=== PATIENT | male | born 1980 ===

== ENCOUNTER 2022-12-31 18:35 | Emergency (ER) | payer BC | END 2022-12-31 19:05 | disposition home or self-care (01) | LOC: LB.ED 18:35 | DX: S61.204A Unspecified open wound of right ring finger without damage to nail, initial encounter (principal); W26.8XXA Contact with other sharp object(s), not elsewhere classified, initial encounter; Y92.59 Other trade areas as the place of occurrence of the external cause | CPT/HCPCS: 12001; 99282 ==